=== PATIENT | male | born 1965 | race Hispanic/Latino ===

== ENCOUNTER 2016-10-10 19:26 | Emergency (ER) ==
[2016-10-10] MEDS ORDERED: G.I. COCKTAIL PO ONE (20:55)
--- NOTE | 2016-10-10 20:56 | PROVIDER DOCUMENTATION ---
HPI-Abdominal Pain/GI Problem - General Chief Complaint: N/V/D Stated Complaint: ABD PAIN/DIARRHEA Time Seen by Provider: 10/10/16 20:45 Source: patient, family Allergies/Adverse Reactions: Patient Allergies Allergy/AdvReac Type Severity Reaction Status Date / Time Penicillins AdvReac BURNING Verified 10/12/16 09:51 INSIDE Home Medications: Home Medication List Medication Instructions Recorded Confirmed Last Taken Type No Home Medications 10/12/16 10/12/16 Unknown History - History of Present Illness-ABD Nature of Presenting Problems: 50 year old male presents with c/o diffuse abd pain for 2-3 months. pt reports he has been seen by his PMD for the same multiple times and has an appointment with GI tomorrow morning. pt reports a history of constipation and GERD as well. pt was evaluated at this morning and left without completing his evaluation because he did not want to wait. pt reports the pain is epigastric in location, described as burning, non-radiating. pt reports the pain develops when he has his reflux. Abdominal Pain Onset Location: reports: epigastric Pain Radiation: reports: no radiation Quality of Pain: reports: burning Severity in ED: reports: mild Onset/Duration: reports: other (see HPI) Timing: reports: still present, constant, getting worse Activities at Onset: reports: none Exposure to sick contacts?: No Last BM: this morning Dark Stools Present?: reports: none noticed. denies: maroon, black, tarry, bright red blood Rectal Bleeding: reports: none. denies: bleeding without stool, bright red blood on paper, blood mixed with stool, blood streaks on stool, bloody diarrhea # of Diarrhea Episodes: 0 Rectal Pain: reports: none # of Vomiting Episodes: 0 Emesis Description: reports: none Review of Systems - Adult - REVIEW OF SYSTEMS - ADULT Constitutional: reports: no symptoms reported. denies: chills, fever, fatique Eyes: reports: no symptoms reported. denies: discharge, decreased vision, blurred vision, double vision Ears, Nose, Mouth & Throat: reports: no symptoms reported. denies: ear discharge, ear pain, nose pain, loose teeth, throat pain, throat swelling Cardiovascular: reports: no symptoms reported. denies: chest pain, palpitations , syncope Respiratory: reports: no symptoms reported. denies: chronic cough, cough, shortness of breath, wheezing Gastrointestinal: reports: see HPI, abdominal pain, constipation, frequent heartburn. denies: hematemesis, diarrhea, difficulty swallowing, nausea, poor appetite, rectal bleeding, vomiting Genitourinary: reports: no symptoms reported. denies: dysuria, hematuria, urgency Musculoskeletal: reports: no symptoms reported. denies: bone pain, joint pain, joint swelling, neck pain Integumentary: reports: no symptoms reported. denies: hives, itching, skin sores/ulcer Neurological: reports: no symptoms reported. denies: ataxia, dizziness/vertigo , numbness, paresthesia Psychiatric: reports: no symptoms reported Endocrine: reports: no symptoms reported Hematologic/Lymphatic: reports: no symptoms reported Allergic/Immunologic: reports: no symptoms reported All Other Systems: Reviewed and Negative Past History - Adult - PAST MEDICAL HISTORY-ADULT Review of Records: reports: Old Records Reviewed, Nursing Assessment Review, Medications Reviewed, Social history reviewed & non-contributory. Major Childhood Illnesses: reports: denies history Cardiovascular: reports: HTN Respiratory: reports: denies history Gastrointestinal: reports: GERD, ulcer (H. Pylori), other (constipation) Obstetrical/Gynecological: reports: denies history Genitourinary: reports: denies history Musculoskeletal: reports: denies history Neurological: reports: denies history Endocrine/Immune: reports: denies history Other Conditions: reports: denies history - PRIOR SURGERIES/PROCEDURES Surgical/Procedure History: reports: reviewed, not pertinent - IMMUNIZATION STATUS Childhood Immunizations: See Nurse Assessment Flu Vaccine: See Nurse Assessment - FAMILY HISTORY Family History: reviewed, not pertinent - SOCIAL HISTORY Smoking: denies, non-smoker Substance Use: none/never Alcohol Use Frequency: never Physical Exam-General - PHYSICAL EXAM-ADULT Initial Vital Signs Reviewed: Yes - CONSTITUTIONAL General Appearance: appears well, alert, no apparent distress. negative: mild distress, moderate distress, severe distress - EYES Eyes: pink conjunctivae. negative: conjuctival exudate, pale conjunctivae - HEAD, EARS, NOSE, MOUTH & THROAT HENMT: normocephalic/atraumatic, moist mucous membranes, normal ENT inspection - NECK Neck: non-tender, full range of motion, supple, normal inspection - RESPIRATORY Respiratory: chest non-tender, lungs clear, normal breath sounds, no pleuratic chest pain, no respiratory distress, no accessory muscle use - CARDIOVASCULAR Cardiovascular: normal peripheral pulses, regular rate, rhythm - CHEST (BREASTS) Chest/Breast: deferred - GASTROINTESTINAL (ABDOMEN) Abdominal Exam: normal bowel sounds, soft, no organomegaly, no pulsatile mass. negative: non tender, abnormal bowel sounds, distended, guarding, rigid, rebound , tenderness, hernia, mass, hepatomegaly, spleenomegaly, McBurney's point tenderness, Fagan's sign, obturator sign, psoas, Rovsing's sign - GENITOURINARY Male Genitalia: deferred Rectal Exam: deferred - LYMPHATIC Lymphatic: no adenopathy - MUSCULOSKELETAL Back Exam: normal inspection, no CVA tenderness, no vertebral tenderness. negative: CVA tenderness, decreased range of motion, swelling, vertebral tenderness Extremity: normal range of motion, non-tender, normal gait, normal inspection, no pedal edema, no calf tenderness, normal capillary refill Peripheral Pulses: radial (R): 3+, radial (L): 3+, dorsalis-pedis (R): 3+, dorsalis-pedis (L): 3+ - SKIN Integumentary: normal color, normal turgor, warm/dry - NEUROLOGIC Neurologic: grossly normal, no motor/sensory deficits - PSYCHIATRIC Psych/Mental Status: normal mood/affect, normal thought content, normal thought process, oriented x 3 Progress - PLAN OF CARE/RESULTS Progress/Plan/Lab Results: Laboratory Tests 10/10/16 20:55 Urine Source CLEAN CATCH Urine Color YELLOW Urine Clarity CLEAR Urine pH 5.0 Ur Specific [place] 1.015 Urine Protein NEGATIVE Urine Ketones NEGATIVE Urine Blood 4+ Urine Nitrite NEGATIVE Urine Bilirubin NEGATIVE Urine Urobilinogen NORMAL Urine Microscopic RBC 10-20 A Urine WBC NEGATIVE Urine Microscopic WBC <10 Ur Epithelial Cells <10 Urine Crystals CA OXALATE PRESENT Urine Bacteria NEGATIVE Urine Glucose NEGATIVE Orders Category Date Time Status FLAT/UPRIGHT ABD/1 VIEW CHEST [RAD] Stat Exams 10/10/16 20:55 Completed UA NIMS W/REFLEX CULT PL [URINALYSIS] Stat Lab 10/10/16 20:55 Completed Lido/Jin Alk/Al&mg Hydrox [G.i. Cocktail] Med 10/10/16 20:55 Discontinued 30 ml PO NOW ONE Reviewed labs from visit to [facility] this AM with Dr. Granados, agrees with plan of care and treatment. - REASSESSMENT Reassessment #1 Time Reassessed: 22:20 Status: improving (pt reports pain has improved with GI cocktail) Departure - Departure Time of Disposition Order: 22:27 DIAGNOSIS: Abdominal pain Qualifiers: Abdominal location: generalized Qualified Code(s): R10.84 - Generalized abdominal pain Constipation Qualifiers: Constipation type: unspecified constipation type Qualified Code(s): K59.00 - Constipation, unspecified GERD (gastroesophageal reflux disease) Qualifiers: Esophagitis presence: esophagitis presence not specified Qualified Code(s): K21.9 - Gastro-esophageal reflux disease without esophagitis Disposition: HOME 01 Certified Medical Emergency: Emergent Condition: Stable Additional Instructions: Follow up with Dr. Thornton tomorrow as scheduled. ED Follow Up Instructions: You have been treated by a care provider in the Emergency Department. These instructions are being provided to you so you can have an understanding of how to care for yourself upon discharge. Upon discharge from the Emergency Department, you are responsible for making arrangements for follow-up care by a physician of your choice. Take all prescribed medications as directed. Return to the Emergency Department immediately for any new or worsening symptoms. You may call the Physician Referral phone number at [phone] to obtain a list of Physicians who are taking new patients. Referrals: None,PCP [Primary Care Provider] - Benja Thornton MD [STAFF PHYSICIAN] - Forms: Return to School/Parent Work Instructions: Constipation, Adult, Abdominal Pain, Adult, [id number] Attestation - Physician/ JAKOB Attestation Patient care was provided by Advanced Practice Provider:: Yes Advanced Practice Provider:: Candice Moreno Advanced Practice Provider documentation review:: The Mid-level provider documentation, treatment plan and medical decision making was reviewed by the physician who agrees with all treatment and medical decision making by the MLP.
[2016-10-10 21:07] LABS: URINE CULTURE PL NEEDED? NO
[2016-10-10 21:24] LABS: BILIRUBIN URINE NEGATIVE (NEGATIVE); BLOOD URINE 4+ (NEGATIVE); CLARITY CLEAR (CLEAR); COLOR YELLOW; GLUCOSE URINE NEGATIVE (NEGATIVE); LEUKOCYTES URINE NEGATIVE (NEGATIVE); NITRITE URINE NEGATIVE (NEGATIVE); PROTEIN URINE NEGATIVE (NEGATIVE); SP GRAVITY URINE 1.015; UROBILINOGEN URINE NORMAL
[2016-10-10 21:27] LABS: URINE EPITHELIAL CELLS <10 /HPF (<10); URINE SOURCE CLEAN CATCH; URINE WBC <10 /HPF (<10)
[2016-10-10 21:32] LABS: URINE CRYSTAL CA OXALATE PRESENT /HPF
[2016-10-10 22:38] VITALS: BP 146/91
--- NOTE | 2016-10-11 08:38 | Diag Imaging Result Document ---
PROCEDURE NAME: FLAT/UPRIGHT ABD/1 VIEW CHEST - 10/10/2016 FRONTAL CHEST X-RAY AND 2 VIEWS OF THE ABDOMEN: COMPARISON: None. FINDINGS: The chest is clear. There is severe constipation particularly of the ascending colon and hepatic flexure. No bowel obstruction or free air. IMPRESSION: Severe constipation.
== END 2016-10-10 22:38 | disposition home or self-care (01) ==
LOC: P.ED 19:26
DX: K21.9 Gastro-esophageal reflux disease without esophagitis (principal); K59.00 Constipation, unspecified; R10.84 Generalized abdominal pain; R11.2 Nausea with vomiting, unspecified; R19.7 Diarrhea, unspecified; I10 Essential (primary) hypertension; Z79.899 Other long term (current) drug therapy; R10.13 Epigastric pain; R53.83 Other fatigue
CPT/HCPCS: 74022; 81001

== ENCOUNTER 2016-10-12 09:28 | Emergency (ER) ==
[2016-10-12 10:18] LABS: MANUAL DIFF NEEDED? NO
[2016-10-12 10:21] LABS: URINE CULTURE NEEDED? NO; URINE MICRO REVIEW NEEDED? NO; URINE SOURCE CLEAN CATCH
[2016-10-12 10:28] LABS: BASO% 0.2 % (0.0-0.8); EOS# 0.01 X1000 (0.0-0.7); EOS% 0.1 % (0.0-10.0); HEMATOCRIT 44.9 % (42.0-52.0); HEMOGLOBIN 15.6 g/dL (14.0-18.0); IMM GRAN# 0.04 X1000 (0.0-0.04); IMM GRAN% 0.4 % (0.0-0.5); LYMPH# 1.38 X1000 (1.2-3.4); LYMPH% 15.4 % (20.5-51.1); MCH 28.9 PG (27-31); MCHC 34.7 g/dL (33-37); MCV 83.3 FL (81-99); MONO# 0.52 X1000 (0.11-0.59); MONO% 5.8 % (1.7-9.3); MPV 10.6 FL (7.4-10.4); NEUT% 78.1 % (42.2-75.2); PLT 286 X1000 (130-400); RBC 5.39 XMIL (4.7-6.1)
[2016-10-12 10:35] LABS: BILIRUBIN URINE NEGATIVE (NEGATIVE); BLOOD URINE MODERATE (NEGATIVE); COLOR YELLOW; GLUCOSE URINE NEGATIVE (NEGATIVE); LEUKOCYTES URINE NEGATIVE (NEGATIVE); NITRITE URINE NEGATIVE (NEGATIVE); PH URINE 6.5; PROTEIN URINE NEGATIVE (NEGATIVE); SP GRAVITY URINE 1.013; TURBIDITY URINE CLEAR (CLEAR); UROBILINOGEN URINE NORMAL (NORMAL)
[2016-10-12] MEDS ORDERED: SODIUM CHLORIDE 0.9% INJ ONE ×2 (10:36→10:51)
[2016-10-12] MEDS ORDERED: PHENERGAN IV ONE (10:36)
[2016-10-12] MEDS ORDERED: NS 1,000 ML IV ONE (10:36)
[2016-10-12 10:37] LABS: UR EPITHELIAL CELLS <10 /HPF (<10); URINE BACTERIA NEGATIVE /HPF; URINE WBC <10 /HPF (<10)
[2016-10-12 10:39] LABS: AGAP 16; ALKALINE PHOSPHATASE 75 U/L (32-122); AMYLASE 69 U/L (20-200); BUN 10 mg/dL (8-22); CALCIUM 9.2 mg/dL (8.8-10.2); CHLORIDE 101 mmol/L (98-107); COSMO 279; GOT 21 U/L (10-34); GPT 34 U/L (10-44); LIPASE 31 U/L (13-60); SODIUM 140 mmol/L (136-145); TCO2 23 mmol/L (25-35); TOTAL BILIRUBIN 0.31 mg/dL (0.20-1.00); TOTAL PROTEIN 7.5 g/dL (6.3-8.3)
[2016-10-12] MEDS ORDERED: PROTONIX IV ONE (10:51)
--- NOTE | 2016-10-12 11:01 | PROVIDER DOCUMENTATION ---
HPI-Abdominal Pain/GI Problem - General Chief Complaint: N/V/D Stated Complaint: VOMITNG,NEAR SYNCOPE Time Seen by Provider: 10/12/16 10:25 Source: patient, family Allergies/Adverse Reactions: Patient Allergies Allergy/AdvReac Type Severity Reaction Status Date / Time Penicillins AdvReac BURNING Verified 10/12/16 09:51 INSIDE Home Medications: Home Medication List Medication Instructions Recorded Confirmed Last Taken Type Ondansetron Odt [Zofran 8Mg Odt] 8 mg PO Q8H PRN PRN #20 tablet 10/12/16 Unknown Rx Polyethylene Glycol 3350 [Miralax] 17 gm PO DAILY #14 powd.pack 10/12/16 Unknown Rx Promethazine [Phenergan] 25 mg PO Q6H PRN PRN #20 tablet 10/12/16 Unknown Rx - History of Present Illness-ABD Nature of Presenting Problems: 50 y/o HM presents to ED with c/o abd. pain, vomiting, diarrhea x 1 month, worse in last 3 days. Pt has been seen at [facility], [facility] within last week. States that he has worsening pain in RUQ. States fever/chills, unknown temp at home. States he had some bad fish 1 month ago. Review of Systems - Adult - REVIEW OF SYSTEMS - ADULT Constitutional: reports: see HPI, chills, fever Eyes: reports: no symptoms reported. denies: blurred vision, double vision Ears, Nose, Mouth & Throat: reports: no symptoms reported. denies: ear pain, nose pain Cardiovascular: reports: no symptoms reported. denies: chest pain, palpitations Respiratory: reports: no symptoms reported. denies: dyspnea on exertion, shortness of breath Gastrointestinal: reports: see HPI, abdominal pain, nausea, vomiting. denies: constipation, diarrhea Genitourinary: reports: no symptoms reported. denies: dysuria, frequency, hematuria Musculoskeletal: reports: no symptoms reported. denies: joint pain, joint swelling Integumentary: reports: no symptoms reported. denies: nail changes, rash Neurological: reports: no symptoms reported. denies: numbness, paresthesia Psychiatric: reports: no symptoms reported Endocrine: reports: no symptoms reported. denies: cold intolerance, heat intolerance Hematologic/Lymphatic: reports: no symptoms reported. denies: easy bruising, prolonged bleeding Allergic/Immunologic: reports: no symptoms reported All Other Systems: Reviewed and Negative Past History - Adult - PAST MEDICAL HISTORY-ADULT Review of Records: reports: Nursing Assessment Review, Medications Reviewed Major Childhood Illnesses: reports: denies history Cardiovascular: reports: HTN Respiratory: reports: denies history Gastrointestinal: reports: ulcer (H. Pylori) Genitourinary: reports: denies history Musculoskeletal: reports: denies history Neurological: reports: denies history Endocrine/Immune: reports: denies history Other Conditions: reports: denies history - PRIOR SURGERIES/PROCEDURES Surgical/Procedure History: reports: reviewed, not pertinent - IMMUNIZATION STATUS Childhood Immunizations: See Nurse Assessment Flu Vaccine: See Nurse Assessment - FAMILY HISTORY Family History: reviewed, not pertinent - SOCIAL HISTORY Smoking: denies Physical Exam-General - PHYSICAL EXAM-ADULT Initial Vital Signs Reviewed: Yes - CONSTITUTIONAL General Appearance: alert, mild distress - EYES Eyes: pink conjunctivae - HEAD, EARS, NOSE, MOUTH & THROAT HENMT: normocephalic/atraumatic, moist mucous membranes - NECK Neck: normal inspection - RESPIRATORY Respiratory: lungs clear, normal breath sounds. negative: crackles, rales, rhonchi, stridor, wheezing - CARDIOVASCULAR Cardiovascular: regular rate, rhythm. negative: bradycardia, tachycardia - GASTROINTESTINAL (ABDOMEN) Abdominal Exam: normal bowel sounds, soft, tenderness (epigastric, umbilicus, RUQ). negative: distended, guarding, rigid, McBurney's point tenderness, Fagan 's sign - MUSCULOSKELETAL Back Exam: normal inspection Extremity: normal gait - SKIN Integumentary: normal color, normal turgor, warm/dry - NEUROLOGIC Neurologic: negative: aphasia - PSYCHIATRIC Psych/Mental Status: normal mood/affect, normal thought content, normal thought process, oriented x 3 Progress - PLAN OF CARE/RESULTS Progress/Plan/Lab Results: Laboratory Tests 10/12/16 10/12/16 10/12/16 09:49 09:49 10:11 WBC 8.94 RBC 5.39 Hgb 15.6 Hct 44.9 MCV 83.3 MCH 28.9 MCHC 34.7 RDW Std Deviation 13.1 Plt Count 286 MPV 10.6 H Immature Gran % (Auto) 0.4 Neut % (Auto) 78.1 H Lymph % (Auto) 15.4 L Bandera % (Auto) 5.8 Eos % (Auto) 0.1 Baso % (Auto) 0.2 Immature Gran # (Auto) 0.04 Neut # (Auto) 6.97 H Lymph # (Auto) 1.38 Bandera # (Auto) 0.52 Eos # (Auto) 0.01 Baso # (Auto) 0.02 Sodium 140 Potassium 4.0 Chloride 101 Carbon Dioxide 23 L Anion Gap 16 BUN 10 Creatinine 0.8 Estimated GFR/1.73 m2 > 60 BUN/Creatinine Ratio 13 Glucose 104 Calculated Osmolality 279 Calcium 9.2 Total Bilirubin 0.31 AST 21 ALT 34 Alkaline Phosphatase 75 Total Protein 7.5 Albumin 4.0 Globulin 3.5 Albumin/Globulin Ratio 1.1 Amylase 69 Lipase 31 Urine Source CLEAN CATCH Urine Color YELLOW Urine Turbidity CLEAR Urine pH 6.5 Ur Specific Olive 1.013 Urine Protein NEGATIVE Ur Glucose (Stick) NEGATIVE Ur Ketones (Stick) NEGATIVE Urine Blood MODERATE A Urine Nitrite NEGATIVE Urine Bilirubin NEGATIVE Urobilinogen Dipstick NORMAL Urine Leukocytes NEGATIVE Urine WBC (Auto) <10 Urine RBC (Auto) 10-20 A U Epithel Cells (Auto) <10 Urine Bacteria (Auto) NEGATIVE Orders Category Date Time Status ED: Orthostatic Vital Signs (E as directed Care 10/12/16 10:36 Active Saline Loc DIRECTED Care 10/12/16 09:49 Active NPO Diet 10/12/16 09:[address] ABD/PELVIS W/ IV CONT ONLY [CT] Stat Exams 10/12/16 10:43 Completed US GB < RUQ (LIMITED) [US] Stat Exams 10/12/16 10:50 Completed AMYLASE [CHEM] Stat Lab 10/12/16 09:49 Completed CBC WITH ELECTRONIC DIFF [HEME] Stat Lab 10/12/16 09:49 Completed COMPREHENSIVE METABOLIC PANEL [CHEM] Stat Lab 10/12/16 09:49 Completed LIPASE [CHEM] Stat Lab 10/12/16 09:49 Completed URINALYSIS W/POSS RFLX CULT [URINALYSIS] Stat Lab 10/12/16 10:11 Completed 0.9% Sodium Chloride Inj [Ns] 1,000 ml Med 10/12/16 10:36 Discontinued IV 999 mls/hr Pantoprazole [Protonix] Med 10/12/16 10:51 Discontinued 40 mg IV NOW ONE Promethazine [Phenergan] Med 10/12/16 10:36 Discontinued 12.5 mg IV NOW ONE Sodium Chloride 0.9% Med 10/12/16 10:36 Discontinued 10 ml INJ NOW ONE Sodium Chloride 0.9% Med 10/12/16 10:51 Discontinued 10 ml INJ NOW ONE Vital Signs Temp Pulse Pulse Pulse Pulse Resp BP 10/12/16 12:55 98.4 F 72 18 151/87 10/12/16 10:43 76 83 78 10/12/16 09:42 98.4 F 83 18 171/110 BP BP BP Pulse Ox 10/12/16 12:55 100 10/12/16 10:43 151/105 144/102 152/97 10/12/16 09:42 100 Penicillins Adverse Reaction (Verified 10/12/16 09:51) BURNING INSIDE Ondansetron Odt [Zofran 8Mg Odt] 8 mg PO Q8H PRN PRN #20 tablet 10/12/16 Polyethylene Glycol 3350 [Miralax] 17 gm PO DAILY #14 powd.pack 10/12/16 Promethazine [Phenergan] 25 mg PO Q6H PRN PRN #20 tablet 10/12/16 I&O 10/11/16 10/12/16 10/13/16 06:59 06:59 06:59 Output Total 50 Balance -50 Laboratory 10/12/16 10/12/16 10/12/16 10:11 09:49 09:49 WBC 8.94 RBC 5.39 Hgb 15.6 Hct 44.9 MCV 83.3 MCH 28.9 MCHC 34.7 RDW Std Deviation 13.1 Plt Count 286 MPV 10.6 H Immature Gran % (Auto) 0.4 Neut % (Auto) 78.1 H Lymph % (Auto) 15.4 L Band[place] % (Auto) 5.8 Eos % (Auto) 0.1 Baso % (Auto) 0.2 Immature Gran # (Auto) 0.04 Neut # (Auto) 6.97 H Lymph # (Auto) 1.38 Band[place] # (Auto) 0.52 Eos # (Auto) 0.01 Baso # (Auto) 0.02 Sodium 140 Potassium 4.0 Chloride 101 Carbon Dioxide 23 L Anion Gap 16 BUN 10 Creatinine 0.8 Estimated GFR/1.73 m2 > 60 BUN/Creatinine Ratio 13 Glucose 104 Calculated Osmolality 279 Calcium 9.2 Total Bilirubin 0.31 AST 21 ALT 34 Alkaline Phosphatase 75 Total Protein 7.5 Albumin 4.0 Globulin 3.5 Albumin/Globulin Ratio 1.1 Amylase 69 Lipase 31 Urine Source CLEAN CATCH Urine Color YELLOW Urine Turbidity CLEAR Urine pH 6.5 Ur Specific Olive 1.013 Urine Protein NEGATIVE Ur Glucose (Stick) NEGATIVE Ur Ketones (Stick) NEGATIVE Urine Blood MODERATE A Urine Nitrite NEGATIVE Urine Bilirubin NEGATIVE Urobilinogen Dipstick NORMAL Urine Leukocytes NEGATIVE Urine WBC (Auto) <10 Urine RBC (Auto) 10-20 A U Epithel Cells (Auto) <10 Urine Bacteria (Auto) NEGATIVE Discussed results with pt and family and appropriate f/u with GI specialist tomorrow, as scheduled. Also discussed f/u with urologist for further management. - CT/MRI 1 CT Study: Abdomen, Pelvis Impression: See EMR Report (Negative, per Dr. Quevedo) - ULTRASOUND (By Radiology) 1 US Study: Gallbladder Impression: See EMR Report (Grossly unremarkable right upper quadrant ultrasound. -per Dr. Escobar) Departure - Departure Time of Disposition Order: 12:47 DIAGNOSIS: Hematuria GERD (gastroesophageal reflux disease) Qualifiers: Esophagitis presence: esophagitis presence not specified Qualified Code(s): K21.9 - Gastro-esophageal reflux disease without esophagitis Abdominal pain Qualifiers: Abdominal location: generalized Qualified Code(s): R10.84 - Generalized abdominal pain Constipation Qualifiers: Constipation type: unspecified constipation type Qualified Code(s): K59.00 - Constipation, unspecified DIAGNOSIS: (Ruled Out): Gallbladder problem Disposition: HOME 01 Certified Medical Emergency: Emergent Condition: Stable Additional Instructions: Follow up with specialist tomorrow, as scheduled, for further maangement. Take medications as directed. Drink plenty of fluids. Follow up with Dr. Dominguez for hematuria. ED Follow Up Instructions: You have been treated by a care provider in the Emergency Department. These instructions are being provided to you so you can have an understanding of how to care for yourself upon discharge. Upon discharge from the Emergency Department, you are responsible for making arrangements for follow-up care by a physician of your choice. Take all prescribed medications as directed. Return to the Emergency Department immediately for any new or worsening symptoms. You may call the Physician Referral phone number at [phone] to obtain a list of Physicians who are taking new patients. Prescriptions: Polyethylene Glycol 3350 [Miralax] 17 gm PO DAILY #14 powd.pack Promethazine [Phenergan] 25 mg PO Q6H PRN PRN #20 tablet PRN Reason: Nausea Ondansetron Odt [Zofran 8Mg Odt] 8 mg PO Q8H PRN PRN #20 tablet PRN Reason: Nausea Referrals: None,PCP [Primary Care Provider] - Kenton Dominguez MD [STAFF PHYSICIAN] - Instructions: Food Choices for Gastroesophageal Reflux Disease, Adult, Constipation, Adult, [id number] Attestation - Physician/ JAKOB Attestation Patient care was provided by Advanced Practice Provider:: Yes Advanced Practice Provider:: Jolene Randle Advanced Practice Provider documentation review:: The Mid-level provider documentation, treatment plan and medical decision making was reviewed by the physician who agrees with all treatment and medical decision making by the MLP.
--- NOTE | 2016-10-12 11:46 | Diag Imaging Result Document ---
PROCEDURE NAME: US GB < RUQ (LIMITED) - 10/12/2016 RIGHT UPPER QUADRANT ABDOMINAL ULTRASOUND: COMPARISON: None available. FINDINGS: The gallbladder appears normal with no stones, wall thickening, or pericholecystic fluid. The common bile duct is normal in diameter. Sonographic Fagan's sign was reported to be negative. The liver, visualized pancreas, aorta, IVC, and right kidney are grossly unremarkable. IMPRESSION: Grossly unremarkable right upper quadrant ultrasound.
--- NOTE | 2016-10-12 12:53 | Diag Imaging Result Document ---
PROCEDURE NAME: CT ABD/PELVIS W/ IV CONT ONLY - 10/12/2016 CT ABDOMEN AND PELVIS WITH INTRAVENOUS CONTRAST: A CT dose reduction protocol was used. COMPARISON: None. FINDINGS: The lung bases are clear and the heart size is normal. The liver, gallbladder, spleen, pancreas, adrenals, and kidneys are unremarkable. There is a small left renal cyst. The urinary bladder is mildly distended with clear appearing urine and otherwise normal. Prostate and rectum are normal. No bowel obstruction or inflammation. Normal appendix. Bony structures are intact. IMPRESSION: Negative exam. MTDD
[2016-10-12 12:56] VITALS: BP 151/87
== END 2016-10-12 13:09 | disposition home or self-care (01) ==
LOC: ED 09:28
DX: K21.9 Gastro-esophageal reflux disease without esophagitis (principal); R31.9 Hematuria, unspecified; K59.00 Constipation, unspecified; R10.84 Generalized abdominal pain; R10.11 Right upper quadrant pain; R11.2 Nausea with vomiting, unspecified; R19.7 Diarrhea, unspecified; R50.9 Fever, unspecified; R55 Syncope and collapse; R10.816 Epigastric abdominal tenderness; R10.811 Right upper quadrant abdominal tenderness; I10 Essential (primary) hypertension
CPT/HCPCS: 74177; 76705; 80053; 81001; 82150; 83690; 85025; C9113; J2550; J7030; Q9966; Q9967; S0164